=== PATIENT | female | born 1955 | race Caucasian/White ===

== ENCOUNTER 2023-04-21 13:22 | Outpatient (CLI) | payer MEDICARE | END 2023-04-21 13:23 | disposition home or self-care (01) | LOC: CSHWCC 13:22 | PROVIDERS: ATTEND Nurse Practitioner Family | DX: I87.333 Chronic venous hypertension (idiopathic) with ulcer and inflammation of bilateral lower extremity (principal); L97.211 Non-pressure chronic ulcer of right calf limited to breakdown of skin; L97.221 Non-pressure chronic ulcer of left calf limited to breakdown of skin; I50.20 Unspecified systolic (congestive) heart failure; R60.0 Localized edema | CPT/HCPCS: 99215; G0463 ==